=== PATIENT | male | born 1945 | race Caucasian/White ===

== ENCOUNTER 2022-02-19 09:13 | Outpatient (CLI) | payer MEDICARE ==
[2022-02-19] MEDS ORDERED: Iopamidol 370 76% 100 ML VIAL ONE (10:13)
== END 2022-02-19 09:14 | disposition home or self-care (01) ==
LOC: CSHCT 09:13
PROVIDERS: ATTEND Internal Medicine Cardiovascular Disease
DX: Z01.810 Encounter for preprocedural cardiovascular examination (principal); I48.0 Paroxysmal atrial fibrillation; I48.20 Chronic atrial fibrillation, unspecified; K25.9 Gastric ulcer, unspecified as acute or chronic, without hemorrhage or perforation; Z53.09 Procedure and treatment not carried out because of other contraindication; N18.9 Chronic kidney disease, unspecified; I48.19 Other persistent atrial fibrillation; K76.9 Liver disease, unspecified; I25.10 Atherosclerotic heart disease of native coronary artery without angina pectoris; I70.0 Atherosclerosis of aorta; I70.90 Unspecified atherosclerosis
CPT/HCPCS: 71275; 82565; Q9967

== ENCOUNTER 2022-04-16 09:22 | Outpatient (CLI) | payer MEDICARE ==
[2022-04-16] MEDS ORDERED: Iopamidol 370 76% 100 ML VIAL ONE (13:28)
== END 2022-04-16 09:23 | disposition home or self-care (01) ==
LOC: CSHCT 09:22
PROVIDERS: ATTEND Internal Medicine Cardiovascular Disease
DX: I48.20 Chronic atrial fibrillation, unspecified (principal); D64.9 Anemia, unspecified; Z95.818 Presence of other cardiac implants and grafts
CPT/HCPCS: 71275; Q9967